=== PATIENT | male | born 1990 | race Caucasian/White ===

== ENCOUNTER 2018-11-21 20:47 | Emergency (ER) | payer OTHER ==
[2018-11-21] MEDS ORDERED: BACITRACIN OINT TOP ONE (21:00)
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
[2018-11-21] MEDS ORDERED: IBUPROFEN 600 MG TABLET PO STA (22:08)
[2018-11-21] MEDS ORDERED: HYDROcod/ACETAM 5/325 MG TABLET PO STA (22:08)
[2018-11-21] MEDS ORDERED: LIDOCAINE OINTMENT 5% 35.44 GM TUBE TOP STA (22:08)
[2018-11-21] MEDS ORDERED: HYDROcod/ACET 5/325 Prepack 4 PO STA (22:25)
[2018-11-21 22:37] VITALS: BP 133/88
== END 2018-11-21 22:42 | disposition home or self-care (01) ==
LOC: ED 20:47
DX: T23.232A Burn of second degree of multiple left fingers (nail), not including thumb, initial encounter (principal); T23.221A Burn of second degree of single right finger (nail) except thumb, initial encounter; T31.0 Burns involving less than 10% of body surface; X03.8XXA Other exposure to controlled fire, not in building or structure, initial encounter
CPT/HCPCS: 99282; 99283; A9270